=== PATIENT | female | born 1985 | race Two or more races ===

== ENCOUNTER 2018-10-08 12:00 | Inpatient (IN) | payer OTHER ==
[2018-10-08 14:14] LABS: BASO % 0.3 % (0-2.0); EOS % 0.9 % (0-4.5); HEMATOCRIT 34.5 % (32.4-45.2); HEMOGLOBIN 11.6 GM/dL (10.7-15.3); LYMPH % 36.6 % (8-40); MCH 29.6 pg (25.7-33.7); MCHC 33.5 g/dl (32.0-36.0); MEAN CELL VOLUME 88.5 fl (80-96); MEAN PLT VOLUME 10.6 fl (7.5-11.1); MONO % 12.6 % (3.8-10.2); NEUT % 49.6 % (42.8-82.8); PLATELET COUNT 136 K/MM3 (134-434); WHITE BLOOD COUNT 5.4 K/mm3 (4.0-10.0)
[2018-10-08 14:27] VITALS: BMI 32.3
[2018-10-08 14:28] LABS: INR 0.98 (0.83-1.09); PROTHROMBIN TIME (PATIENT) 11.6 SEC (9.7-13.0)
[2018-10-08 14:30] LABS: ACTIVATED PTT 30.2 SECONDS (25.2-36.5); BLOOD UREA NITROGEN 8.8 mg/dL (7-18); CALCIUM 9.4 mg/dL (8.5-10.1); CREATININE 0.6 mg/dL (0.55-1.3)
[2018-10-08] MEDS ORDERED: OXYTOCIN 30 UNITS in 0.9% NS 30 UNIT/500 ML INFUS.BAG IVPB ONE (14:46)
[2018-10-08] MEDS: ELECTROLYTE-148 SOLN 1,000 ML IV SCH (14:54)
[2018-10-08] MEDS: OXYTOCIN 30 UNITS in 0.9% NS 30 UNIT/500 ML INFUS.BAG IVPB SCH (14:55)
[2018-10-08] MEDS ORDERED: BUTORPHANOL TARTRATE 2 MG/ML VIAL ONE (15:17)
[2018-10-08] MEDS ORDERED: PROMETHAZINE HCL 25 MG/1 ML VIAL ONE (15:17)
[2018-10-08] MEDS ORDERED: OXYTOCIN 20 UNITS in 0.9% NS 20 UNIT/1,000 ML INFUS.BAG IV ONE (15:40)
[2018-10-08] MEDS: OXYTOCIN 20 UNITS in 0.9% NS 20 UNIT/1,000 ML INFUS.BAG IV SCH (15:50)
[2018-10-08] MEDS ORDERED: LIDOCAINE HCL 1% PRESERVATIVE FREE - 30ML VIAL ONE (15:51)
[2018-10-08] MEDS ORDERED: BISACODYL 10 MG SUPP.RECT RC PRN (16:50)
[2018-10-08] MEDS ORDERED: WITCH HAZEL 50% (TUCKS) 40 PAD/JAR PAD TP PRN (16:50)
[2018-10-08] MEDS ORDERED: METHYLERGONOVINE MALEATE 0.2 MG/1 ML AMP IM PRN (16:50)
[2018-10-08] MEDS ORDERED: BENZOCAINE 28 GM HEMORRHOIDAL OINTMENT TP PRN (16:50)
[2018-10-08] MEDS ORDERED: oxyCODONE HCL 5 MG TABLET PO PRN (16:50)
[2018-10-08] MEDS ORDERED: BENZOCAINE 20% 57 GM BOTTLE TP PRN (16:50)
--- NOTE | 2018-10-08 16:53 | PN ---
Delivery - Delivery Vaginal Delivery: No Problems Type of Anesthesia: Local Episiotomy/Laceration: 1st degree EBL (cc): 200 Delivery, Single - Stages of Labor Date 1st Stage Initiatied: 10/08/18 Time 1st Stage Initiated: 14:50 Date 2nd Stage Initiated: 10/08/18 Time 2nd Stage Initiated: 15:35 Date of Delivery: 10/08/18 Time of Delivery: 15:45 Time Placenta Delivered: 15:50 Placenta: Yes: Spontaneous - Condition of Infant Forensic Audit Expert/Communication Equipment Repairer Present: No Infant Gender: Male Position: Right, OA Total Hours ROM (Hrs/Mins): 1 hour 10 minutes - 1 Minute Total Score: 9 5 Minutes Total Score: 9 - Feeding Plan Initial Plan: Exclusive throughout hospitalization Benefits of Exclusively reinforced: Yes
--- NOTE | 2018-10-08 16:55 | HP ---
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: No: Alzheimer's, CVA, Dementia, Migraine, Multiple Sclerosis, Peripheral Neuropathy, Parkinson's, Seizure, Syncope, TIA, Vertigo, Other Cardiovascular: No: AFIB, Aneurysm, Aortic Insufficiency, Aortic Stenosis, CAD, CHF, Deep Vein Thrombosis, HTN, Hyperlipdemia, [place], Mitral Insufficiency, Mitral Stenosis, Murmur, Pulmonary Hypertension, Other Pulmonary: No: Asthma, Bronchitis, Cancer, COPD, O2 Dependent, Pneumonia, Previously Intubated, Pulmonary Embolus, Pulmonary Fibrosis, Sleep Apnea, Other Gastrointestinal: No: Ascites, Cancer, Constipation, Crohn's Disease, Diverticulitis, Diverticulosis, Esophageal Varices, Gastritis, GERD, GI Bleed, Hemorrhoids, Hiatal Hernia, Inflamatory Bowel Disease, Irritable Bowel Disease, Pancreatitis, Peptic Ulcer Disease, Ulcerative Colitis, Other Hepatobiliary: No: Cirrhosis, Cholelithiasis, Cholecystitis, Choledocholithiasis , Hepatitis A, Hepatitis B, Hepatitis C, Other Renal/: No: Renal Failure, Renal Inusuff, BPH, Cancer, Hematuria, Hemodialysis , Neurogenic Bladder, Renal Calculi, UTI, Other Reproductive: No: Ectopic , Endometriosis, Fibroids, PID, Polycystic Ovary Syndrome, Postmenopausal, Other ...: 3 ...Para: 2 ...Term: 2 ...: 0 ...Spon : 0 ...Induced : 0 ...Multiple Gestation: 0 ...EDC by Katia: 10/13/18 Heme/Onc: No: Anemia, B12 Deficiency, Bleeding Disorder, Cancer, Current Chemotherapy, Current Radiation Therapy, Hemochromatosis, Hypercoaguable State, Myeloproliferative Synd, Sickle Cell Disease, Sickle Cell Trait, Thrombocytopenia, Other Infectious Disease: No: AIDS, C-Diff, Herpes Zoster, HIV, MRSA, STD's, Tuberculosis, VREF, Other Psych: No: Addictions, Anxiety, Bipolar, Depression, Panic, Psychosis, Schizophrenia, Other Musculoskeletal: No: Bursitis, Chronic low back pain, Hemiparesis, Hemiplegia, Osteoarthritis, Paraplegia, Other Rheumatology: No: Fibromyalgia, Gout, Lupus, Rheumatoid Arthritis, Sarcoidosis, Vasculitis, Other ENT: No: Allergic Rhinitis, Sinusitis, Other Endocrine: No: Belmont's Disease, Rafael's Disease, Diabetes Insipidus, Diabetes Mellitus, Hyperparathyroidism, Hyperthyroidism, Hypothyroidism, Osteopenia, SIADH, Other Dermatology: No: Basal Cell, Cellulitis, Eczema, Melanoma, Psoriasis, Squamous Cell, Other - Past Surgical History Past Surgical History: No: None, AAA Repair, AICD, Amputation, Appendectomy, Arthrosocopy, AV Fistula/Graft, Bariatric Surgery, Breast Biopsy, Bypass, CABG, Carotid Endarterectomy, Cataract Removal, Cholecystectomy, Colectomy, Colonoscopy, Colostomy, Craniotomy, , Cystectomy, Hernia Repair, Hysterectomy, Ileal Conduit, Ileosotomy, Joint Replacement, Kidney Transplant, Laminectomy, Liver Transplant, Mastectomy, Nephrectomy, Oopherectomy, Orchiectomy, Permanent Pacemaker, Prostatectomy, Splenectomy, Stent, Thoracotomy , TURP, Tonsillectomy, Tubal Ligation, Upper Endoscopy, Valve Replacement, Vasectomy, Vein Stripping/Ligation Hx Myomectomy: No Hx Transabdominal Cerclage: No - Advance Directives Advance Directives: Yes: Health Care Proxy - Smoking History Smoking history: Never smoked Have you smoked in the past 12 months: No - Alcohol/Substance Use Hx Alcohol Use: No History of Substance Use: reports: None - Social History Usual Living Arrangement: Yes: With Spouse ADL: Independent History of Recent Travel: No Home Medications - Allergies Allergies/Adverse Reactions: Allergies Allergy/AdvReac Type Severity Reaction Status Date / Time No Known Allergies Allergy Verified 10/08/18 13:57 - Home Medications Home Medications: Ambulatory Orders Ferrous Sulfate 1 tab PO BID 10/08/18 Vits96/Iron Fum/Folic [ Tablet] 1 tab PO DAILY 10/08/18 Family Disease History - Family Disease History Family History: Denies Review of Systems - Review of Systems Constitutional: reports: No Symptoms Eyes: reports: No Symptoms HENT: reports: No Symptoms Neck: reports: No Symptoms Cardiovascular: reports: No Symptoms Respiratory: reports: No Symptoms Gastrointestinal: reports: No Symptoms Genitourinary: reports: No Symptoms Breasts: reports: No Symptoms Reported Musculoskeletal: reports: No Symptoms Integumentary: reports: No Symptoms Neurological: reports: No Symptoms Physical Exam - Maternity Vital Signs: Vital Signs Temperature 98.2 F 10/08/18 12:00 Pulse Rate 93 H 10/08/18 12:00 Respiratory Rate 18 10/08/18 12:00 Blood Pressure 116/71 10/08/18 12:00 O2 Sat by Pulse Oximetry (%) Constitutional: Yes: Well Nourished, No Distress, Calm Eyes: Yes: WNL, Conjunctiva Clear, EOM Intact HENT: Yes: WNL, Atraumatic, Normocephalic Neck: Yes: WNL, Supple, Trachea Midline Cardiovascular: Yes: WNL, Regular Rate and Rhythm Lungs: Clear to auscultation Breast(s): Yes: WNL - Abdominal Exam/OB Number of Fetuses: Single Presentation: Vertex Contractions: No Regularity: Irregular Intensity: Mild - Labs Lab Results: CBC, BMP 10/08/18 13:30 10/08/18 13:30 Hemorrhage Risk Assessment - Risk Factors Risk Score: 0 Risk Level: Low Risk Assessment/Plan for pitocin,
[2018-10-08] MEDS ORDERED: D5W-LR W/ 20 UNITS OXYTOCIN 20 UNIT/1,000 ML INFUS.BAG IV SCH (17:00)
[2018-10-08] MEDS ORDERED: IBUPROFEN 600 MG TABLET (FP) PO ONE (17:25)
[2018-10-08] MEDS ORDERED: ACETAMINOPHEN 325 MG TABLET (FP) ONE (17:26)
[2018-10-08] MEDS: IBUPROFEN 600 MG TABLET (FP) PO PRN ×2 (17:30→22:13)
[2018-10-08] MEDS: ACETAMINOPHEN 325 MG TABLET (FP) PO PRN ×2 (17:30→22:14)
[2018-10-09] MEDS: IBUPROFEN 600 MG TABLET (FP) PO PRN ×5 (01:53→20:59)
[2018-10-09] MEDS: ACETAMINOPHEN 325 MG TABLET (FP) PO PRN ×5 (01:53→21:00)
[2018-10-09 08:44] LABS: BASO % 0.3 % (0-2.0); EOS % 1.6 % (0-4.5); LYMPH % 33.1 % (8-40); MCH 29.6 pg (25.7-33.7); MCHC 33.5 g/dl (32.0-36.0); MEAN CELL VOLUME 88.3 fl (80-96); MEAN PLT VOLUME 10.5 fl (7.5-11.1); MONO % 11.1 % (3.8-10.2); NEUT % 53.9 % (42.8-82.8); PLATELET COUNT 121 K/MM3 (134-434); RDW 17.1 % (11.6-15.6); WHITE BLOOD COUNT 6.5 K/mm3 (4.0-10.0)
--- NOTE | 2018-10-09 14:51 | PN ---
Post Progress Note Post Day: 1 Type of Delivery: Vital Signs: Vital Signs Temperature 98.3 F 10/09/18 10:00 Pulse Rate 83 10/09/18 10:00 Respiratory Rate 20 10/09/18 10:00 Blood Pressure 145/69 10/09/18 06:00 O2 Sat by Pulse Oximetry (%) 100 10/08/18 16:45 Breast Exam: Yes: Soft Uterus: Yes: Fundus Firm, Fundus below umbilicus Abdomen/GI: Yes: Abdomen soft, Passing flatus, Tolerating PO Lochia: Yes: Serosa Lochia, amount: Small Extremities: Yes: Calves non-tender Perineum: Yes: Laceration Activity: Ambulating - Labs Labs: CBC WBC 6.5 K/mm3 (4.0-10.0) 10/09/18 08:07 RBC 3.40 M/mm3 (3.60-5.2) L 10/09/18 08:07 Hgb 10.0 GM/dL (10.7-15.3) L 10/09/18 08:07 Hct 30.0 % (32.4-45.2) L 10/09/18 08:07 MCV 88.3 fl (80-96) 10/09/18 08:07 MCH 29.6 pg (25.7-33.7) 10/09/18 08:07 MCHC 33.5 g/dl (32.0-36.0) 10/09/18 08:07 RDW 17.1 % (11.6-15.6) H 10/09/18 08:07 Plt Count 121 K/MM3 (134-434) L 10/09/18 08:07 MPV 10.5 fl (7.5-11.1) 10/09/18 08:07 Absolute Neuts (auto) 3.5 K/mm3 (1.5-8.0) 10/09/18 08:07 Neutrophils % 53.9 % (42.8-82.8) 10/09/18 08:07 Lymphocytes % 33.1 % (8-40) 10/09/18 08:07 Monocytes % 11.1 % (3.8-10.2) H 10/09/18 08:07 Eosinophils % 1.6 % (0-4.5) 10/09/18 08:07 Basophils % 0.3 % (0-2.0) 10/09/18 08:07 Nucleated RBC % 0 % (0-0) 10/09/18 08:07 Assessment/Plan dc pt home tomorrow
--- NOTE | 2018-10-09 14:53 | DS ---
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 Vital Signs: Vital Signs Temperature 98.3 F 10/09/18 10:00 Pulse Rate 83 10/09/18 10:00 Respiratory Rate 20 10/09/18 10:00 Blood Pressure 145/69 10/09/18 06:00 O2 Sat by Pulse Oximetry (%) 100 10/08/18 16:45 Constitutional: Yes: Well Nourished, No Distress, Calm Eyes: Yes: WNL, Conjunctiva Clear, EOM Intact HENT: Yes: WNL, Atraumatic, Normocephalic Neck: Yes: WNL, Supple, Trachea Midline Cardiovascular: Yes: WNL, Regular Rate and Rhythm Respiratory: Yes: WNL, Regular, CTA Bilaterally Gastrointestinal: Yes: WNL, Normal Bowel Sounds, Soft ...Rectal Exam: Yes: WNL Renal/: Yes: WNL Pelvis: Yes: WNL External Genitalia: Yes: Normal Internal Exam Deferred: No Vaginal Exam: Yes: Normal Cervix: Yes: Normal Uterus: Yes: Normal Adnexa: Normal: Bilateral ....Post : Yes: Uterus firm, Uterus non-tender Breast(s): Yes: WNL Musculoskeletal: Yes: WNL Extremities: Yes: WNL Edema: Yes Edema: LUE: 1+, RUE: 1+, LLE: 1+, RLE: 1+ Integumentary: Yes: WNL Wound/Incision: Yes: Clean/Dry, Well Approximated Neurological: Yes: WNL, Alert, Oriented ...Motor Strength: WNL Psychiatric: Yes: WNL, Alert, Oriented Labs: CBC, BMP 10/09/18 08:07 10/08/18 13:30 Delivery - Delivery Vaginal Delivery: No Problems Type of Anesthesia: Local Episiotomy/Laceration: 1st degree EBL (cc): 200 Delivery, Single - Stages of Labor Date 1st Stage Initiatied: 10/08/18 Time 1st Stage Initiated: 14:50 Date 2nd Stage Initiated: 10/08/18 Time 2nd Stage Initiated: 15:35 Date of Delivery: 10/08/18 Time of Delivery: 15:45 Time Placenta Delivered: 15:50 Placenta: Yes: Spontaneous - Condition of Infant Tailings 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/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
[2018-10-09] MEDS: OXYTOCIN 30 UNITS in 0.9% NS 30 UNIT/500 ML INFUS.BAG IVPB SCH (16:00)
[2018-10-09] MEDS: ELECTROLYTE-148 SOLN 1,000 ML IV SCH (16:00)
[2018-10-09] MEDS: OXYTOCIN 20 UNITS in 0.9% NS 20 UNIT/1,000 ML INFUS.BAG IV SCH (18:21)
[2018-10-09] MEDS ORDERED: SENNOSIDES/DOCUSATE COMBO (SENNA PLUS) TABLET (UD) PO PRN (22:00)
[2018-10-10] MEDS: ACETAMINOPHEN 325 MG TABLET (FP) PO PRN ×2 (01:21→11:52)
[2018-10-10] MEDS: IBUPROFEN 600 MG TABLET (FP) PO PRN ×2 (01:21→11:51)
[2018-10-10 10:42] VITALS: BP 139/84; PULSE 71; TEMP 98.3
== END 2018-10-10 13:10 | disposition home or self-care (01) | DRG 806 ==
LOC: JLDR 12:00 → J3W 17:55
PROVIDERS: ADMIT Obstetrics & Gynecology; ATTEND Obstetrics & Gynecology
PROC: 10E0XZZ Delivery of Products of Conception, External Approach (ICD-10-PCS; principal; 2018-10-08)
PROC: 0W8NXZZ Division of Female Perineum, External Approach (ICD-10-PCS; 2018-10-08)
PROC: 0HQ9XZZ Repair Perineum Skin, External Approach (ICD-10-PCS; 2018-10-08)
DX: O70.0 First degree perineal laceration during delivery (principal); O41.03X0 Oligohydramnios, third trimester, not applicable or unspecified; Z37.0 Single live birth; Z3A.39 39 weeks gestation of pregnancy
CPT/HCPCS: 36415; 59409; 80048; 85025; 85610; 85730; 86593; 86850; 86900; 86901